=== PATIENT | female | born 1980 | race Two or more races ===

== ENCOUNTER → 2024-09-10 | Outpatient (CLI) | payer BC, SELFPAY ==
--- NOTE | 2024-09-10 08:15 | XR_ITS ---
Examination: Screening digital mammography, bilateral Computer aided detection 3-D breast Tomosynthesis, bilateral Date and time of exam: September 10, 2024 6 0758 hours Indication: Screening Technique: Nonmagnified MLO, CC views of the breasts to been obtained, reconstructed from 3-D Tomosynthesis images. R2 computer aided detection program utilized for evaluation of suspicious masses and/or abnormal calcifications. 3-D Tomosynthesis images obtained. Findings: The breasts are heterogeneously dense, which may obscure small masses 5 cm circumscribed mass nipple level right breast suspicious for cyst Numerous bilateral calcifications 8mm circumscribed nodule outer left breast anterior depth, also suspicious for cyst Impression: BI-RADS Category 0: Incomplete: Need additional imaging evaluation Recommend follow-up spot compression tomographic views 5 cm circumscribed mass nipple level right breast and 8 mm circumscribed nodule outer left breast as well as bilateral breast sonography to complete the workup
== END | disposition home or self-care (01) ==
PROVIDERS: Referring Provider Internal Medicine; Visit Provider Internal Medicine
DX: Z12.31 Encounter for screening mammogram for malignant neoplasm of breast (principal); R92.8 Other abnormal and inconclusive findings on diagnostic imaging of breast; N63.10 Unspecified lump in the right breast, unspecified quadrant
CPT/HCPCS: 77063; 77067

== ENCOUNTER → 2024-12-29 | Outpatient (CLI) | payer BC, SELFPAY ==
--- NOTE | 2024-12-29 14:00 | XR_ITS ---
Examination: Breast ultrasound complete, bilateral Date and time of exam: December 29, 2024 1421 hours INDICATIONS: Bilateral breast pain beginning 2 days ago bilateral breast masses on mammogram September 10, 2024 Technique: Real-time grayscale ultrasonographic imaging bilateral breasts, including all 4 quadrants as well as nipple retroareolar and axillary regions. Findings: Sonographic images right breast Multiple benign cystic masses Right breast retroareolar complex fluid collection 0.8 x 1.8 x 4.8 cm Sonographic images left breast Multiple benign cysts No solid nodules depicted IMPRESSION: Recommend ultrasound-guided aspiration of complex fluid collection in the retroareolar region right breast to exclude malignant cytology
--- NOTE | 2024-12-29 15:00 | XR_ITS ---
Examination: Diagnostic digital mammography, bilateral Computer aided detection 3-D breast Tomosynthesis, bilateral Date and time of exam: December 29, 2024 1452 hours INDICATIONS: Mammogram September 10, 2024 5 cm mass right breast 8mm nodule left breast Technique: Nonmagnified MLO, CC views of the breasts to been obtained, reconstructed from 3-D Tomosynthesis images. R2 computer aided detection program utilized for evaluation of suspicious masses and/or abnormal calcifications. 3-D Tomosynthesis images obtained. Findings: The breasts are heterogeneously dense, which may obscure small masses No suspicious right or left breast mass Circumscribed nodule 12:00 right breast corresponding to cyst described on ultrasound study today 3:00 nodule left breast circumscribed corresponding to cyst described on ultrasound study today Impression: BI-RADS Category 2: Benign findings Recommend yearly follow-up mammography Please see the breast sonography report and recommendations today.
== END | disposition home or self-care (01) ==
PROVIDERS: PCP Obstetrics & Gynecology; Referring Provider Obstetrics & Gynecology; Visit Provider Obstetrics & Gynecology
DX: R92.323 Mammographic fibroglandular density, bilateral breasts (principal); R92.8 Other abnormal and inconclusive findings on diagnostic imaging of breast
CPT/HCPCS: 76641; 77062; 77066; G0279

== ENCOUNTER 2025-01-20 13:44 | Outpatient (AMB) | payer BC, SELFPAY ==
[2025-01-20 13:58] VITALS: BP 120/70; PULSE 90; RESP 16; TEMP 35.7; O2SAT 99; BMI 23.3
--- NOTE | 2025-01-20 13:58 | AMB.GYNCLNOT ---
Vital Signs 01/20/25 13:58 Height 1.75 m Height Method Stated Weight 71.668 kg Weight Measurement Method Standing Scale BMI 23.3 BP 120/70 Blood Pressure Source Automatic Cuff Blood Pressure Location Left Upper Arm Position Sitting Respiration 16 Pulse 90 Pulse Source Monitor Temp 96.3 F L Temp Source Oral Pulse Oximetry (%) 99 Oxygen Delivery Method Room Air Allergies/Home Meds Allergies & Medications Allergies No Known Allergies Allergy (Verified 01/20/25 13:59) Medication Reconciliation apixaban 5 mg (74 tabs) tablets in a dose pack (Eliquis DVT-PE Treat 30D Start) 5 mg PO BID #74 tabs 03/23/24 [Rx Confirmed 01/20/25] Intake Visit Data Collection New Patient or Established: Established Patient (seen at [facility] within 3 years) Reason for Visit:: Bilateral Breast Cysts Seen by Clinical Staff ONLY (RN/MA): No Fitness Attendant Required: No Do You Feel Safe at Home: Yes Authorities Contacted: N/A PCP or OBGYN visit in last 3 months: Yes Date of Last PCP or OBGYN visit: 12/29/24 Hx Now: No Are you currently on any form of Control: No Pain Present Currently: No Pain Scale Used: Mccoy-Lan/Numerical Pain scale:: 0 Smoking Status Smoking Status: Former smoker [employer] history [employer] History Menstrual regularity: regular Flow: normal Monthly: Yes Menopausal: No Currently sexually active: Yes Questionnaires Covid-19 Vaccine Questionnaire Has patient been vacinated for Covid-19 Have you been vacinated for Covid-19: Yes PHQ-9 PHQ-2 Over the last 2 weeks, how often have you been bothered by any of the following problems? 1. Little interest or pleasure in doing things: not at all 2. Feeling down, depressed, or hopeless: not at all Total score: 0 PHQ-9 3. Trouble falling or staying asleep, or sleeping too much: Not at all 4. Feeling tired or having little energy: Not at all 5. Poor appetite or overeating: Not at all 6. Feeling bad about yourself - or that you are a failure or have let yourself or your family down: Not at all 7. Trouble concentrating on things, such as reading the newspaper or watching television: Not at all 8. Moving or speaking so slowly that other people could have noticed? - Or the opposite - being so fidgety or restless that you have been moving around a lot more than usual: not at all 9. Thoughts that you would be better off or of hurting yourself in some way: Not at all Total score: 0 If you checked off any problems, how difficult have these problems made it for you to do your work, take care of things at home, or get along with other people?: not difficult at all Source: Developed by Drs. Ari Noguera, Mikaela Johnson, Ayden Arias and colleagues, with an educational nakul from [employer]. Depression screen completed yes Social History Living Situation History Marital Status: Lives With: Family Housing: House Tobacco History Smoking Status: Former smoker Second Hand Smoke Exposure: No Alcohol History Alcohol Intake: Current Alcohol Intake Frequency: A Few Times a Week Domestic Abuse History Do You Feel Safe at Home: Yes Past Medical History Past Medical History Have you ever been diagnosed with any of the following: Neurological Problems Seizures: No Cardiology Problems Congestive Heart Failure: No Respiratory Problems Chronic Obstructive Pulmonary Disease (COPD): No Asthma: No Genital/Urinary Problems Renal Disease: No Reproductive Problems Previous Pregnancies: Yes () Endocrine Problems Diabetes Mellitus Type 1: No Diabetes Mellitus Type 2: No Blood Problems Sickle Cell Disease: No Other Problems Blood Transfusions: No Blood Transfusion Reaction: No Anesthesia Reactions: No Organ Transplant: No MRSA: No Clostridium Difficile: No Cancer: No Surgical History Hysterectomy: Yes History of Present Illness HPI Narrative Chief Complaint Long-term follow-up after hysterectomy and pulmonary embolism, right breast cyst requiring aspiration History of Present Illness Tai Mai, a 44-year-old female, presents for long-term follow-up after a complex medical history including hysterectomy, pulmonary embolism, and breast concerns. Her current chief complaint is a right breast cyst requiring aspiration. The patient's medical journey began on 03-07-2024 with severe menorrhagia necessitating an emergency hysterectomy. Postoperatively, she developed a pulmonary embolism on 03-22-2024, requiring inpatient treatment and anticoagulation with Xarelto. She continued to experience shortness of breath even after healing from the hysterectomy, as noted during her 05-13-2024 visit. On 06-20-2024, the patient presented with breast complaints. An ultrasound revealed complex cysts in the left breast, with one measuring 2.5 by 4 cm at the 2 o'clock position, along with multiple benign simple cysts. Subsequently, on 07-23-2024, she reported vaginal spotting, which resolved after a brief pause in anticoagulation. The patient was treated for bacterial vaginosis on 08-01-2024. Recent imaging studies have revealed a significant finding in the right breast. A mammogram on 09-10-2024 showed a cyst in the right breast, and a follow-up breast ultrasound on 12-29-2024 identified a right breast retro-areolar complex fluid collection measuring 4.8 cm. The radiologist has recommended aspiration of this cyst, which is scheduled to occur within the next 2-3 days. The patient reports concerns about weight gain, fluid retention, and leg swelling, which she previously attributed to Eliquis. However, she discontinued Eliquis in September and has had no further issues since then. The patient's overall health status has improved since discontinuing anticoagulation, with resolution of the symptoms she attributed to the medication. She has been adherent to follow-up appointments and imaging studies as recommended. Medical History - Pulmonary embolism diagnosed on 03-22-2024 - Severe menorrhagia requiring emergency treatment on 03-07-2024 - Complex cysts in the left breast identified on 06-16-2024 - Bacterial vaginosis treated on 08-01-2024 - Right breast retro-areolar complex fluid collection measuring 4.8 cm identified on 12-29-2024 Surgical History - Hysterectomy on 03-07-2024 for severe menorrhagia; postoperative course uneventful Medications and Supplements - Xarelto - Prescribed for pulmonary embolism treatment after hospitalization. - Eliquis - Discontinued in September. - Patient attributed weight gain, fluid retention, and leg swelling to this medication. Laboratory, Imaging, and Diagnostic Test Results - CT scan (03/22/2024): Pulmonary embolism detected - Breast ultrasound (06/16/2024): - Left breast: Complex cysts, one at 2 o'clock measuring 2.5 x 4 cm - Multiple additional benign simple cysts - Mammogram (09/10/2024): Cyst in the right breast - Breast ultrasound (12/29/2024): - Right breast: Retro-areolar complex fluid collection measuring 4.8 cm - Mammogram (12/29/2024): BI-RADS category 2 Review of Systems General: Positive for weight gain. Cardiovascular: Positive for leg swelling. Respiratory: Positive for shortness of breath. Genitourinary: Positive for vaginal spotting. Review of Systems Review of Systems Systems Reviewed: All systems reviewed, normal except as documented Exam General Limitations: no limitations General Appearance: alert, in no apparent distress, comfortable, cooperative, healthy appearing, well developed and well groomed Neck Neck exam: Present normal inspection, full ROM and trachea midline Chest Chest inspection: Present normal inspection and symmetric chest wall rise Abdominal Abdominal exam: Present soft and normal bowel sounds Psych Psychiatric exam: Present normal affect and normal mood Skin Skin exam: Present warm, dry, intact and normal color Assessment & Plan Diagnosis / Problem List (1) Cyst of breast, bilateral, diffuse fibrocystic: Status: Acute (2) Pulmonary emboli: Status: Acute (3) S/P PB (total abdominal hysterectomy): Status: Acute Plan Tai Mai, a 44-year-old female, presents for long-term follow-up after a hysterectomy for severe menorrhagia, subsequent pulmonary embolism, and recent breast cyst findings. Breast cysts Assessment: Patient has complex cysts in both breasts, identified through ultrasound and mammogram. The right breast shows a retro-areolar complex fluid collection measuring 4.8 cm, while the left breast has multiple benign simple cysts, with one at 2 o'clock measuring 2.5 by 4 cm. The mammogram was classified as BI-RADS category 2. The radiologist has recommended aspiration of the right breast cyst for further evaluation. Plan: - Schedule urgent aspiration of right breast cyst with radiologist within 2-3 days - Perform aspiration under image guidance with local anesthetic - Send aspirated fluid for cytological examination - If benign, no further action required - If not benign, refer to breast surgeon for cyst removal - Follow up after aspiration to discuss results and further management if needed History of pulmonary embolism Assessment: Patient developed pulmonary embolism post-hysterectomy, initially treated with Xarelto and later transitioned to Eliquis. She was co-managed with an internal medicine physician for anticoagulation. The patient reported shortness of breath, weight gain, fluid retention, and leg swelling, which she attributed to Eliquis. She discontinued Eliquis in September and has had no further issues since then. Plan: - Follow up on previously scheduled lung x-ray for pulmonary embolism evaluation - Continue to monitor for any recurrence of pulmonary embolism symptoms - Assess need for ongoing anticoagulation therapy Post-hysterectomy follow-up Assessment: Patient underwent hysterectomy on 03-07-2024 for severe menorrhagia. Postoperative course was initially uneventful, and she has healed from the surgery. However, she experienced vaginal spotting on 07-23-2024, which resolved after holding anticoagulation for 5 days. Plan: - Continue to monitor for any post-hysterectomy complications - Educate patient on signs and symptoms that would require immediate medical attention - Address any ongoing concerns related to the hysterectomy History of bacterial vaginosis Assessment: Patient was treated for bacterial vaginosis on 08-01-2024. No current symptoms or concerns related to this condition were mentioned in the transcript. Plan: - Monitor for any recurrence of bacterial vaginosis symptoms - Educate patient on preventive measures and when to seek treatment if symptoms return Medical Decision Making Tai Mai is a 44-year-old female with a history of hysterectomy and pulmonary embolism, presenting for long-term follow-up of multiple issues. The patient's complex medical history includes severe menorrhagia requiring emergency hysterectomy, followed by pulmonary embolism, and subsequent anticoagulation therapy. The decision to continue anticoagulation was based on the severity of the initial pulmonary embolism and ongoing symptoms. Breast imaging revealed complex cysts in both breasts, with a right breast retro-areolar complex fluid collection measuring 4.8 cm. The radiologist recommended aspiration of this cyst, which is consistent with BI-RADS category 2 findings. The decision to proceed with urgent aspiration is based on the size of the cyst and the need to rule out malignancy. The clinical reasoning suggests that while the cyst is likely benign, aspiration and fluid analysis are necessary to confirm this. The presence of multiple cysts may be exacerbated by anticoagulation therapy, which influenced the decision to discontinue Eliquis in September. The patient's reported weight gain, fluid retention, and leg swelling were considered in relation to anticoagulation side effects, leading to medication adjustment. Office Procedures OB Clinic LOC & Office Proc's Nursing/Assessment Patient Status: Established Patient OB Clinic Nursing Assessment: BP Monitoring, Medication Reconciliation, Update PMH in EMR and Vital Signs OB Clinic Coordination of Care: Consent,records obtained, informed consent, Education Simp Pt/Fam, Results/Orders obtained and Staff clarify orders Established Patient Charge Established Patient Point Assignment: 80 Established Patient Point Charge: EP Level 3 (80-115)
== END 2025-01-20 14:23 | disposition home or self-care (01) ==
LOC: HODSOBC 13:44
PROVIDERS: Supervising Provider Obstetrics & Gynecology; Visit Provider Obstetrics & Gynecology
DX: N60.12 Diffuse cystic mastopathy of left breast (principal); N60.11 Diffuse cystic mastopathy of right breast; Z86.711 Personal history of pulmonary embolism; Z90.710 Acquired absence of both cervix and uterus; Z87.42 Personal history of other diseases of the female genital tract; Z79.01 Long term (current) use of anticoagulants; Z87.891 Personal history of nicotine dependence
CPT/HCPCS: 99213; G0463